=== PATIENT | male | born 1995 | race Caucasian/White ===

== ENCOUNTER 2024-01-26 20:20 | Emergency (ER) | payer OTHER ==
--- NOTE | 2024-01-26 20:33 | ED ---
Lower Extremity Injury HPI - General Source: patient, RN notes reviewed Mode of arrival: ambulatory Limitations: no limitations <Aida Gustafson - Last Filed: 01/26/24 20:32> <Maik Moore - Last Filed: 01/26/24 23:15> - General Stated Complaint: R foot injury-[facility] nail in foot Time Seen by Provider: 01/26/24 20:32 - History of Present Illness Initial Comments: Quick note: 28-year-old male presented to the ER with a chief complaint of right foot injury. He states while at work today he stepped on a romero nail. He stated it punctured through his boot. Tetanus status unknown. Denies any other injuries. (Aida Gustafson) 28-year-old male presenting to the ED with a chief complaint of right foot injury. States that he stepped on a nail at work and then raise his foot. Nail did not become embedded in him. Tetanus status unknown. No other injuries at this time. No other complaints. (Maik Moore) - Related Data Previous Rx's Medication Instructions Recorded Ciprofloxacin HCl [Cipro] 750 mg PO Q12H 5 Days #10 tab 01/26/24 Allergies Allergy/AdvReac Type Severity Reaction Status Date / Time No Known Allergies Allergy Verified 01/26/24 20:50 Review of Systems ROS Other: All systems not noted in ROS Statement are negative. <Aida Gustafson - Last Filed: 01/26/24 20:32> ROS Other: All systems not noted in ROS Statement are negative. <Maik Moore - Last Filed: 01/26/24 23:15> ROS Statement: Those systems with pertinent positive or pertinent negative responses have been documented in the HPI. General Exam <Aida Gustafson - Last Filed: 01/26/24 20:32> General appearance: alert, in no apparent distress Eye exam: Present: normal appearance Neck exam: Present: normal inspection Respiratory exam: Present: normal lung sounds bilaterally Cardiovascular Exam: Present: regular rate GI/Abdominal exam: Present: soft Extremities exam: Present: other (Small punctate lesion to the bottom of the right foot with no active bleeding. No retained foreign bodies visualized.) Neurological exam: Present: alert, oriented X3 Skin exam: Present: warm, dry <Maik Moore - Last Filed: 01/26/24 23:15> - General Exam Comments Initial Comments: Visual Physical Exam Vital signs reviewed General: Well-appearing, nontoxic, no acute distress. Head: Normocephalic, atraumatic Eyes: PERRLA, EOMI ENT: Airway patent Chest: Nonlabored breathing Skin: No visual rash, normal skin tone Neuro: Alert and oriented 3 Musculoskeletal: No gross abnormalities (Aida Gustafson) Course Vital Signs 01/26/24 20:47 Temperature 98.2 F Pulse Rate 61 Respiratory 16 Rate Blood Pressure 120/71 O2 Sat by Pulse 98 Oximetry Medical Decision Making <Aida Gustafson - Last Filed: 01/26/24 20:32> <Maik Moore - Last Filed: 01/26/24 23:15> - Medical Decision Making I performed the quick note portion of this chart. Electronically signed by Aida Gustafson PA-C (Aida Gustafson) Was pt. sent in by a medical professional or institution ([facility], [facility], urgent care, hospital, or senior care...) When possible be specific @ -No Did you speak to anyone other than the patient for history (EMS, parent, family, police, friend...)? What history was obtained from this source @ -No Did you review nursing and triage notes (agree or disagree)? Why? @ -I reviewed and agree with nursing and triage notes Were old charts reviewed (outside hosp., previous admission, EMS record, old EKG, old radiological studies, urgent care reports/EKG's, senior care records)? Report findings @ -No old charts were reviewed Differential Diagnosis (chest pain, altered mental status, abdominal pain women, abdominal pain men, vaginal bleeding, weakness, fever, dyspnea, syncope, headache, dizziness, GI bleed, back pain, seizure, CVA, palpatations, mental health, musculoskeletal)? @ -Differential Musculoskeletal Muscular strain, contusion, ligament sprain, fracture, arthritis, septic arthritis, bursitis, cellulitis, muscle spasm, nerve compression, DVT, arterial occlusion, herpes zoster, electrolyte abnormality, tumor.... This is not meant to be in all inclusive list EKG interpreted by me (3pts min.). @ -As above X-rays interpreted by me (1pt min.). @ -X-ray of the right foot unremarkable. No visualized foreign bodies. CT interpreted by me (1pt min.). @ -None done U/S interpreted by me (1pt. min.). @ -None done What testing was considered but not performed or refused? (CT, X-rays, U/S, labs)? Why? @ -None What meds were considered but not given or refused? Why? @ -None Did you discuss the management of the patient with other professionals (prof stewart i.e. , PA, [employer], lab, RT, psych nurse, clinical social work therapist, rn rehab, teacher, police officer, outpatient case manager)? Give summary @ -No Was smoking cessation discussed for >3mins.? @ -No Was critical care preformed (if so, how long)? @ -No Were there social determinants of health that impacted care today? How? (Homelessness, low income, unemployed, alcoholism, drug addiction, transportation, low edu. Level, literacy, decrease access to med. care, halfway, rehab)? @ -No Was there de-escalation of care discussed even if they declined (Discuss DNR or withdrawal of care, Hospice)? DNR status @ -No What co-morbidities impacted this encounter? (DM, HTN, Smoking, COPD, CAD, Cancer, CVA, ARF, Chemo, Hep., AIDS, mental health diagnosis, sleep apnea, morbid obesity)? @ -None Was patient admitted / discharged? Hospital course, mention meds given and route, prescriptions, significant lab abnormalities, going to OR and other pertinent info. @ -Discharge 28-year-old male presented to the ED after stepping on a nail right foot. On examination no foreign bodies retained. No active bleeding of the small punctate lesion. X-ray of the right foot unremarkable. No visualized foreign b odies. Right foot neurovascularly intact. Tetanus updated. Discharged home with prescription for ciprofloxacin. Provided dose here. Discussed return precautions with patient who verbalized agreement. Undiagnosed new problem with uncertain prognosis? @ -No Drug Therapy requiring intensive monitoring for toxicity (Heparin, Nitro, Insulin, Cardizem)? @ -No Were any procedures done? @ -No Diagnosis/symptom? @ -Right foot injury Acute, or Chronic, or Acute on Chronic? @ -Acute Uncomplicated (without systemic symptoms) or Complicated (systemic symptoms)? @ -Uncomplicated Side effects of treatment? @ -No Exacerbation, Progression, or Severe Exacerbation? @ -No Poses a threat to life or bodily function? How? (Chest pain, USA, MS, pneumonia, PE, COPD, DKA, ARF, appy, cholecystitis, CVA, Diverticulitis, Homicidal, Suicidal, threat to staff... and all critical care pts) @ -No (Maik Moore) Disposition <Aida Gustafson - Last Filed: 01/26/24 20:32> Is patient prescribed a controlled substance at d/c from ED?: No Time of Disposition: 22:45 <Maik Moore - Last Filed: 01/26/24 23:15> Clinical Impression: Nail entering through skin, initial encounter Disposition: HOME SELF-CARE Condition: Good Instructions (If sedation given, give patient instructions): Acute Wound Care (ED) Prescriptions: Ciprofloxacin HCl [Cipro] 750 mg PO Q12H 5 Days #10 tab Referrals: None,Stated [Primary Care Provider] - 1-2 days
[2024-01-26 20:50] VITALS: BP 120/71; PULSE 61; RESP 16; TEMP 98.2
[2024-01-26] MEDS: DIPH,PERTUS(ACELL)TETVAC-LF 0.5 ML VIAL IM ONE (21:02)
--- NOTE | 2024-01-26 22:02 | XR ---
EXAMINATION TYPE: XR foot complete RT DATE OF EXAM: 01/26/2024 9:55 PM CLINICAL INDICATION:Male, 28 years old with history of stepped on nail; [facility] COMPARISON: None TECHNIQUE: XR foot complete RT examined in the AP, oblique, and lateral projections. FINDINGS: No evidence of any acute osseous pathology. No evidence of soft tissue swelling. No radiopaque forei gn body. IMPRESSION: 1. No evidence of acute fracture. 2. No radiopaque foreign bodies.
[2024-01-26] MEDS: CEPHALEXIN 500MG STARTER PACK 4 CAP BTL PO STA (23:13)
[2024-01-26] MEDS: LEVOFLOXACIN 750 MG TAB PO STA (23:29)
[2024-01-26] MEDS: CIPROFLOXACIN HCL 250 MG TAB PO STA (23:44)
== END 2024-01-26 23:49 | disposition home or self-care (01) ==
LOC: EC 20:20
DX: S99.921A Unspecified injury of right foot, initial encounter (principal); Z23 Encounter for immunization; W45.0XXA Nail entering through skin, initial encounter
CPT/HCPCS: 90471; 90715; 99283